=== PATIENT | male | born 1990 | race Hispanic/Latino ===

== ENCOUNTER 2018-04-01 04:18 | Emergency (ER) | payer BC ==
[2018-04-01] MEDS ORDERED: TETANUS & DIPHTHERIA TOX,ADULT 0.5 ML VIAL ONE (05:00)
[2018-04-01] MEDS ORDERED: CEPHALEXIN 250 MG CAP ONE (05:00)
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
[2018-04-01] MEDS ORDERED: WATER FOR INJ,STERILE 10 ML ONE (05:24)
--- NOTE | 2018-04-01 09:40 | RAD REPORT ---
EXAM DESCRIPTION: RAD - Elbow Left 3 View - 04/01/2018 4:42 am CLINICAL HISTORY: Left elbow pain, posterior elbow wound COMPARISON: None. FINDINGS: No fracture is identified and no elevated posterior fat pad. There is no dislocation or pe riosteal reaction noted. No acute bone or joint finding identifiable. Soft tissues posterior to the olecranon are prominent. There is a cluster of calcifications along the posterior margin of the olecranon. These are potentially calcifications of the triceps tendon. Posit ioning is slightly more posterior than would be expected. Calcifications within or along the lining o f the olecranon bursa would be possible. No air or foreign body in the soft tissues. IMPRESSION: No acute bone or joint finding. Posterior calcifications and soft tissue swelling present. Calcifications are potentially old post tr auma calcifications of the triceps tendon. However, positioning raises concern for calcifications wit hin or along the lining of the olecranon bursa. No air or foreign body in the soft tissues.
== END 2018-04-01 05:51 | disposition home or self-care (01) ==
LOC: ER 04:18
PROC: 0JQH0ZZ Repair Left Lower Arm Subcutaneous Tissue and Fascia, Open Approach (ICD-10-PCS; principal; 2018-04-01)
DX: S51.012A Laceration without foreign body of left elbow, initial encounter (principal); W18.30XA Fall on same level, unspecified, initial encounter; Y92.29 Other specified public building as the place of occurrence of the external cause; F17.210 Nicotine dependence, cigarettes, uncomplicated
CPT/HCPCS: 90714; 99284